=== PATIENT | female | born 1970 | race African-American/Black ===

== ENCOUNTER 2016-08-05 17:25 | Inpatient (IN) ==
[2016-08-05] MEDS ORDERED: chlorproMAZINE INJ 25 MG in SODIUM CHLORIDE 0.9% 100 ML IV PRN (19:57)
[2016-08-05] MEDS ORDERED: BENZTROPINE 2 MG/2 ML AMP IV PRN (19:57)
[2016-08-05] MEDS ORDERED: MAGNESIUM HYDROXIDE SUSP 30 ML UDCUP PO PRN (19:57)
[2016-08-05] MEDS ORDERED: chlorproMAZINE INJ 50 MG in SODIUM CHLORIDE 0.9% 100 ML IV PRN (19:57)
[2016-08-05] MEDS ORDERED: diphenhydrAMINE CAP 25 MG CAPSULE PO PRN (19:57)
[2016-08-05] MEDS ORDERED: TEMAZEPAM 7.5 MG CAPSULE PO PRN (19:57)
[2016-08-05] MEDS ORDERED: PROMETHAZINE INJ 25 MG in SODIUM CHLORIDE 0.9% 50 ML IV PRN (19:57)
[2016-08-05] MEDS ORDERED: ACETAMINOPHEN 325 MG TABLET PO PRN (19:57)
[2016-08-05] MEDS ORDERED: ALUMINUM/MAGNES/SIMETH MAX STR 30 ML UDCUP PO PRN (19:57)
[2016-08-05] MEDS ORDERED: LACTULOSE 20 GM/30 ML UDCUP PO PRN (19:57)
[2016-08-05] MEDS ORDERED: ALPRAZolam 0.25 MG TABLET PO PRN (19:57)
[2016-08-05] MEDS ORDERED: traMADol 50 MG TABLET PO PRN (19:57)
[2016-08-05] MEDS ORDERED: guaiFENesin 200 MG/10 ML UDCUP PO PRN (19:57)
[2016-08-05] MEDS ORDERED: LOPERAMIDE 2 MG CAPSULE PO PRN ×2 (19:57)
[2016-08-05] MEDS ORDERED: MYLANTA/LIDO VISC 2:1 300 ML BOTTLE SWISH/SWAL PRN (19:57)
[2016-08-05] MEDS ORDERED: ONDANSETRON 4 MG/2 ML VIAL IV PRN (19:57)
[2016-08-05] MEDS ORDERED: chlorproMAZINE 25 MG TABLET PO PRN (19:57)
[2016-08-05] MEDS ORDERED: MYLANTA/LIDO VISC 2:1 300 ML BOTTLE SWISH/SPIT PRN (19:57)
[2016-08-05] MEDS ORDERED: SODIUM CHLORIDE 0.9% 250 ML IV PRN (20:01)
[2016-08-05 22:03] LABS: Basophils # 0.1 10*3/uL (0.0-0.2); Eosinophils # 0.1 10*3/uL (0.0-0.87); Eosinophils % 0.1 % (0.00-10.9); Hematocrit 21.4 VOL% (35.7-47.0); Hemoglobin 7.1 GM/DL (12.0-16.0); Immature Granulocytes % 32.5 %; Immature Granulocytes Absolute 44.28 #; Lymphocytes # 3.7 10*3/uL (1.4-4.0); Lymphocytes % 2.7 % (21.3-54.2); Mean Corpuscular HGB Conc 33.2 GM/DL (32-36); Mean Corpuscular Hemoglobin 26 PG (27-34); Mean Corpuscular Volume 78.4 FL (87-102); Mean Platelet Volume 9.4 FL (9.6-12.0); Monocytes # 4.3 10*3/uL (0.11-0.8); Monocytes % 3.1 % (1.7-12.7); NRBC # 0.25 10*3/uL; Neutrophils # 83.9 10*3/uL (1.4-7.4); Neutrophils % 61.6 % (38.7-73.9); Platelet Count 455 T/CUMM (130-400); Red Blood Count 2.73 MC/CUMM (3.8-5.5); Red Cell Distribution Width 17.7 % (9.3-17.3)
[2016-08-05 22:05] LABS: White Blood Count 136.3 T/CUMM (4-12)
[2016-08-05 22:31] LABS: Albumin 2.2 G/DL (3.4-5.0); Bilirubin,Total 1.1 MG/DL (0.2-1.0); Magnesium 1.3 MG/DL (1.8-2.4); Osmolality,Calculated 279.4 MOS/KG (273-304); Potassium 3.6 MMOL/L (3.5-5.1); Total Protein 6.4 G/DL (6.4-8.3); Uric Acid 9.6 MG/DL (2.6-6.0)
[2016-08-05 23:05] LABS: Band Neutrophils 5 % (0-10); Lymphocytes 8 % (20-55); Metamyelocytes 1 %; Myelocytes 8 %; Nucleated Red Blood Cells 1 (0-5); Segmented Neutrophils 76 % (50-85)
[2016-08-05 23:06] LABS: Hypochromasia 1+; Microcytosis 1+; Platelet Estimate Normal; Polychromasia Few; Total Cells Counted 100
[2016-08-06] MEDS: SODIUM CHLORIDE 0.45% 1,000 ML IV SCH ×2 (03:03→15:38)
[2016-08-06] MEDS: PIPERACILLIN/TAZOBACTAM 3,375 MG in SODIUM CHLORIDE 0.9% 100 ML IV SCH ×3 (03:20→22:58)
[2016-08-06 05:51] LABS: Eosinophils # 0.1 10*3/uL (0.0-0.87); Eosinophils % 0.1 % (0.00-10.9); Hematocrit 24.6 VOL% (35.7-47.0); Hemoglobin 8.1 GM/DL (12.0-16.0); Immature Granulocytes % 31.7 %; Immature Granulocytes Absolute 39.24 #; Lymphocytes # 3.5 10*3/uL (1.4-4.0); Lymphocytes % 2.9 % (21.3-54.2); Mean Corpuscular HGB Conc 32.9 GM/DL (32-36); Mean Corpuscular Hemoglobin 26 PG (27-34); Mean Corpuscular Volume 79.9 FL (87-102); Mean Platelet Volume 9.5 FL (9.6-12.0); Monocytes # 3.4 10*3/uL (0.11-0.8); Monocytes % 2.7 % (1.7-12.7); NRBC # 0.24 10*3/uL; Neutrophils # 77.3 10*3/uL (1.4-7.4); Neutrophils % 62.6 % (38.7-73.9); Platelet Count 390 T/CUMM (130-400); Red Blood Count 3.08 MC/CUMM (3.8-5.5)
[2016-08-06 06:12] LABS: White Blood Count 123.6 T/CUMM (4-12)
[2016-08-06] MEDS ORDERED: SODIUM CHLORIDE 0.9% 250 ML IV PRN (06:32)
[2016-08-06 06:34] LABS: Band Neutrophils 10 % (0-10); Lymphocytes 3 % (20-55); Metamyelocytes 2 %; Myelocytes 5 %; Nucleated Red Blood Cells 1 (0-5); Segmented Neutrophils 78 % (50-85); Total Cells Counted 100
[2016-08-06 06:35] LABS: Hypochromasia 1+; Microcytosis 1+; Platelet Estimate Adequate
[2016-08-06] MEDS ORDERED: oxyCODONE/ACETAMINOPHEN 5-325 MG TABLET PO PRN (06:35)
[2016-08-06] MEDS ORDERED: CYCLOBENZAPRINE 10 MG TABLET PO PRN (06:35)
[2016-08-06] MEDS ORDERED: CETIRIZINE 10 MG TABLET PO PRN (06:35)
[2016-08-06] MEDS ORDERED: MAGNESIUM SULF RIDER 4 GM in PREMIX 1 EACH IV ONE (06:36)
--- NOTE | 2016-08-06 06:47 | Oncology History&Physical ---
Assessment and Plan (1) Metastatic carcinoma Status: Acute Assessment and plan: I have asked GI to evaluate given anemia and abnormal CT of the sigmoid colon. A CEA is pending for today. I will also notify radiation of her inpatient status and continue treatment as tolerated to what appears to be a left femoral target. She may require MRI to further delineate the cause of her back pain. I will also consider an axillary biopsy while hospitalized. She will be placed on DVT prophylaxis. She has dehydration at this time and is on IV fluids and withholding of metformin. I will also follow her liver panel which is abnormal. I have placed her on a renal dose amount of allopurinol for her significant uric acid elevation. She is a very sick patient and her prognosis is guarded at this time. Current Visit: Yes History of Present Illness Chief complaint: Back pain History of present illness: Ms. Schwab is a 46 year old female Recently diagnosed with widely metastatic carcinoma. Liver biopsy is consistent with triple negative breast carcinoma. She recently underwent a breast ultrasound and biopsy which I believe were nondiagnostic. She does have a right axillary lymph node previously discussed with Dr. Alonso and we had plans to biopsy this area as well. The patient has received 1 cycle of standard dose paclitaxel. My initial request was for doublet carboplatinum and Taxol though this was denied by her insurance. She has had some degree of inflammation and leukocytosis with a 30-40,000 white blood cell count. Yesterday she was seen at [facility] with back pain and was noted to have a white blood count of over 100,000. Peripheral smear is pending this morning though her manual differential seems to indicate more of a leukemoid type reaction. I have asked GI to see her due to the fact she has a microcytic anemia and has an area of narrowing within the sigmoid colon. She reports a colonoscopy with Dr. Hutchins in [place] approximately 6-8 years ago. There are multiple other areas of tumor including the adrenal glands lower thorax and at least 2 large masses within the liver Home Medications Medication Instructions Recorded Confirmed Type Ascorbic Acid Tab [Vitamin C Tab] 500 mg PO DAILY 07/15/16 08/05/16 History Citalopram [CeleXA] 20 mg PO DAILY 07/15/16 08/05/16 History Metoprolol Tartrate 50 mg PO BID 07/15/16 08/05/16 History metFORMIN [Glucophage] 1,000 mg PO BID W/MEALS 07/15/16 08/05/16 History Cyclobenzaprine [Flexeril] 5 mg PO BEDTIME PRN 07/17/16 08/05/16 History Albuterol Inhaler [Proventil 2 puff INH Q4H PRN 07/26/16 08/05/16 History Inhaler] Cetirizine Tab [ZyrTEC Tab] 10 mg PO DAILY PRN 07/26/16 08/05/16 History Ferrous Sulfate 325 mg PO BID 07/26/16 08/05/16 History Oxycodone HCl/Acetaminophen 1 each PO Q6HR PRN #30 07/31/16 08/05/16 Rx [Percocet 10-325 mg Tablet] Allergies Allergy/AdvReac Type Severity Reaction Status Date / Time lisinopril Allergy Severe FACIAL Verified 07/15/16 17:13 SWELLING Medical,Surgical,& Family Hx - Medical History Cardio: History of: Hypertension Neurology: No history of: Seizures Endocrine: History of: Diabetes Mellitus (NIDDM), Dyslipidemia Musculoskeletal: History of: Back/Neck Problems (low back pain started today) Other: No history of: Anesthesia Reactions - Surgical History Reproductive Surgeries: Surgical HX of;: Hysterectomy (Complete) - Family History Family History: Reports;: Family Diabetes, Family Hypertension - Social History Smoking Status: Current every day smoker Frequency of Alcohol Use: None Type of Drug Use: None - Constitutional Constitutional: Present: fatigue, malaise, night sweats. Absent: increased appetite - EENT Nose, mouth and throat: Absent: dizziness, dysphagia, epistaxis - Cardiovascular Cardiovascular ROS IM: Absent: chest pain - Respiratory Respiratory: Absent: cough, hemoptysis - Gastrointestinal Gastrointestinal: Present: constipation. Absent: diarrhea - Musculoskeletal Musculoskeletal ROS: Present: back pain, muscle weakness. Absent: joint swelling - Psychiatric Psychiatric General: Absent: panic attacks, suicidal ideation Exam - Constitutional Vitals: Period Temp Pulse Resp BP Sys/Kelly Pulse Ox Last 24 Hr 96.5 F-98.6 F 100-108 18-20 91-109/54-65 92-100 General appearance: mild distress, over weight - Head Head Exam: Present: normocephalic - Eye Eye Exam: Present: EOMI. Absent: conjunctival injection, periorbital swelling, scleral icterus Pupils: Present: PERRL - ENT ENT exam: Present: normal external ear exam - Neck Neck exam: Present: normal inspection. Absent: lymphadenopathy - Respiratory Respiratory exam: Present: CTAB. Absent: accessory muscle use, chest wall tenderness, wheezes - Cardiovascular Cardiovascular exam: Present: tachycardia. Absent: systolic murmur - GI/Abdominal GI/Abdominal exam: Absent: ascites, distended, firm, guarding - Neurological Exam Neurological exam: Present: alert, oriented X3 - Psychiatric Psychiatric exam: Present: normal affect, normal mood Results - Labs CBC & BMP: 08/06/16 04:50 08/05/16 20:56
[2016-08-06 07:57] LABS: Albumin 2.1 G/DL (3.4-5.0); Bilirubin,Total 0.5 MG/DL (0.2-1.0); Calcium 8.1 MG/DL (8.5-10.1); Magnesium 1.4 MG/DL (1.8-2.4); Osmolality,Calculated 280.3 MOS/KG (273-304); Potassium 3.6 MMOL/L (3.5-5.1); Total Protein 6.2 G/DL (6.4-8.3)
[2016-08-06 08:20] LABS: Immunoglobulin A 173 MG/DL (70-400); Immunoglobulin G 1280 MG/DL (700-1600); Immunoglobulin M 85 MG/DL (40-230)
[2016-08-06] MEDS: ALLOPURINOL 100 MG TABLET PO SCH (08:51)
[2016-08-06] MEDS: FERROUS SULFATE 325 MG TABLET PO SCH ×2 (08:51→22:52)
[2016-08-06] MEDS: ASCORBIC ACID 500 MG TABLET PO SCH (08:51)
[2016-08-06] MEDS: ENOXAPARIN 40 MG/0.4 ML SYRINGE SUBCUT SCH (08:53)
[2016-08-06] MEDS: METOPROLOL TARTRATE 50 MG TABLET PO SCH ×2 (08:53→22:51)
[2016-08-06 10:43] LABS: Albumin (SPE) 2.5 G/DL (3.2-5.3); Albumin (SPE) Rel % 40.1 %; Alpha 1 (SPE) 0.5 G/DL (0.1-0.4); Alpha 1 (SPE) Rel % 8.1 %; Alpha 2 (SPE) Rel % 16.5 %; Total Protein (Chem) 6.2 G/DL (6.4-8.2)
[2016-08-06 10:44] LABS: Beta (SPE) Rel % 15.8 %; Gamma (SPE) 1.2 G/DL (0.7-1.7); Gamma (SPE) Rel % 19.5 %
[2016-08-06 11:26] LABS: Apearance,Urine CLOUDY (Clear); Bilirubin,Urine Negative (Negative); Blood, Urine Negative (Negative); Glucose,Urine (UA) Negative (Negative); Ketones,Urine Negative (Negative); Mucus,Urine Occasional /LPF (Occasional); Nitrite,Urine Negative (Negative); Protein,Urine 100 MG/DL; RBC,Urine 37 /HPF (0-4); Squamous Epithelial Cell,Urine Few /HPF (0-10); Uric Acid Crystals,Urine Moderate /HPF (<1); Urine Specific Gravity 1.018 (1.001-1.035); WBC,Urine 98 /HPF (0-6)
[2016-08-06 11:27] LABS: Urine Color Dark yellow (Yellow)
[2016-08-06] MEDS ORDERED: BISACODYL 5 MG TABLET PO ONE (12:00)
--- NOTE | 2016-08-06 12:54 | Gastrointestinal Consult Note ---
Assessment and Plan (1) Metastatic carcinoma Status: Acute Assessment and plan: 08/06-Recent diagnosis of metastatic disease with reported findings on CT scan of narrowing at sigmoid colon. Unable to find or view this report at present time. Anemia, abdominal pain. Plan to proceed with colonoscopy tomorrow as pt tolerates the prep. Plan and addendum to follow by Dr Watts. Current Visit: Yes History of Present Illness Chief complaint: Abnormal CT, anemia, metastatic cancer History of present illness: Ms. Schwab is a 46 year old female who presented to the hospital with worsening back pain. Pt has a history of recently diagnosed metastatic carcinoma. Pt states that she was initially diagnosed last month with breast cancer and began chemotherapy. She underwent a liver biopsy as well and was found to have triple negative breast carcinoma. She went to [facility] on yesterday due to worsening back pain and was found to have an elevated WBC count and was sent to our facility for further evaluation. Pt had a contrasted CT of the abdomen and pelvis on 07/12 with findings of widespread neoplastic disease with mass in right lunb, liver lesions, adrenal masses bilaterally and left renal masses, mediastinal nodes with consideration for mesothelioma. I do not see mention on this report of a narrowing of the sigmoid colon or an updated CT in the facility database at present time, however noted in Dr Woodruff admission note. Pt had colonoscopy that she reported was several years ago by Dr Hutchins in [place] for changes in her stool. She presents as well with microcytic anemia with hemoglobin of 7.1 and MCV 78. She has been transfused 2 units of PRBC with hgb now 8.1. WBC 123, CEA 17.7 Home Medications Medication Instructions Recorded Confirmed Type Ascorbic Acid Tab [Vitamin C Tab] 500 mg PO DAILY 07/15/16 08/05/16 History Citalopram [CeleXA] 20 mg PO DAILY 07/15/16 08/05/16 History Metoprolol Tartrate 50 mg PO BID 07/15/16 08/05/16 History metFORMIN [Glucophage] 1,000 mg PO BID W/MEALS 07/15/16 08/05/16 History Cyclobenzaprine [Flexeril] 5 mg PO BEDTIME PRN 07/17/16 08/05/16 History Albuterol Inhaler [Proventil 2 puff INH Q4H PRN 07/26/16 08/05/16 History Inhaler] Cetirizine Tab [ZyrTEC Tab] 10 mg PO DAILY PRN 07/26/16 08/05/16 History Ferrous Sulfate 325 mg PO BID 07/26/16 08/05/16 History Oxycodone HCl/Acetaminophen 1 each PO Q6HR PRN #30 07/31/16 08/05/16 Rx [Percocet 10-325 mg Tablet] Allergies Allergy/AdvReac Type Severity Reaction Status Date / Time lisinopril Allergy Severe FACIAL Verified 07/15/16 17:13 SWELLING Medical,Surgical,& Family Hx - Medical History Cardio: History of: Hypertension Neurology: No history of: Seizures Endocrine: History of: Diabetes Mellitus (NIDDM), Dyslipidemia Musculoskeletal: History of: Back/Neck Problems (low back pain started today) Other: No history of: Anesthesia Reactions - Surgical History Reproductive Surgeries: Surgical HX of;: Hysterectomy (Complete) - Family History Family History: Reports;: Family Diabetes, Family Hypertension - Social History Smoking Status: Current every day smoker Frequency of Alcohol Use: None Type of Drug Use: None 12 point system: reviewed and no additional remarkable complaints except as stated - Constitutional Constitutional: Present: as per HPI, fatigue, weight loss - EENT Eyes: Present: as per HPI Ears: Present: as per HPI Nose, mouth and throat: Present: as per HPI - Cardiovascular Cardiovascular: Present: as per HPI - Respiratory Respiratory: Present: as per HPI - Gastrointestinal Gastrointestinal: Present: as per HPI, abdominal pain - Genitourinary Genitourinary: Present: as per HPI - Musculoskeletal Musculoskeletal: Present: as per HPI - Neurological Neurological: Present: as per HPI - Psychiatric Psychiatric: Present: as per HPI - Endocrine Endocrine: Present: as per HPI - Hematologic/Lymphatic Hematologic/Lymphatic: Present: as per HPI Exam - Constitutional Vitals: Period Temp Pulse Resp BP Sys/Kelly Pulse Ox Last 24 Hr 96.5 F-98.6 F 100-108 18-20 91-109/54-65 92-100 General appearance: normal weight, no acute distress - Head Head exam: Present: normal inspection, normocephalic - Eye Eye exam: Present: other (lids and conjunctiva unremarakble). Absent: scleral icterus - ENT ENT exam: Present: normal exam, normal oropharynx - Neck Neck exam: Present: normal inspection - Respiratory Respiratory exam: Present: clear to auscultation bilaterally. Absent: rales, rhonchi, wheezes - Cardiovascular Cardiovascular exam: Present: regular rate and rhythm. Absent: diastolic murmur , JVD, systolic murmur - GI/Abdominal GI/Abdominal exam: Present: normal bowel sounds, distended, tenderness, soft. Absent: ascites, mass, organomegaly - Extremities Exam Extremities exam: Present: normal inspection, full ROM - Back Exam Back exam: Present: normal inspection - Neurological Exam Neurological exam: Present: alert, oriented X3 - Psychiatric Psychiatric exam: Present: normal affect, normal mood - Skin Skin exam: Present: normal color, warm, dry Results - Labs CBC & BMP: 08/06/16 04:50 08/06/16 04:00 Lab Results: I have reviewed the past 24 hour labs
--- NOTE | 2016-08-06 17:55 | Event Note ---
Patient was seen and examined at 11:15 AM today in the presence of my nurse practitioner Poppy HI. Unfortunately the computer will not allow me to access her note for cosign at this time. Unfortunate situation with metastatic malignancy question of sigmoid involvement raising the possibility of secondary primary. We'll proceed with colonoscopy in a.m. if she is unable tolerate a prep will plan EGD. Risks, benefits and alternatives were reviewed with the patient. Abdomen is soft nondistended nontender Agree with additional history physical findings per Poppy HI note of today that the computer will not let me cosign at this time. I will plan to cosign it at a later time.
[2016-08-06] MEDS ORDERED: POLYETHYLENE GLYCOL POWDER 255 GM BOTTLE PO ONE (18:00)
[2016-08-06] MEDS ORDERED: MAGNESIUM CITRATE 300 ML BOTTLE PO ONE (21:00)
[2016-08-07] MEDS: ENOXAPARIN 40 MG/0.4 ML SYRINGE SUBCUT SCH (07:26)
[2016-08-07] MEDS: PIPERACILLIN/TAZOBACTAM 3,375 MG in SODIUM CHLORIDE 0.9% 100 ML IV SCH ×2 (07:31→18:42)
--- NOTE | 2016-08-07 07:31 | Oncology Progress Note ---
Assessment and Plan (1) Metastatic carcinoma Status: Acute Assessment and plan: I have asked GI to evaluate given anemia and abnormal CT of the sigmoid colon. A CEA is pending for today. I will also notify radiation of her inpatient status and continue treatment as tolerated to what appears to be a left femoral target. She may require MRI to further delineate the cause of her back pain. I will also consider an axillary biopsy while hospitalized. She will be placed on DVT prophylaxis. She has dehydration at this time and is on IV fluids and withholding of metformin. I will also follow her liver panel which is abnormal. I have placed her on a renal dose amount of allopurinol for her significant uric acid elevation. She is a very sick patient and her prognosis is guarded at this time. Current Visit: Yes Oncology Subjective PN Interval history: Patient is comfortable at this time. Vital signs are stable. Flow cytometry is ordered for extreme leukocytosis. EGD for today as she was unable to tolerate colon prep yesterday. Also planning right axillary node biopsy. This area was examined by me today and is approximately 3 cm in size. The left eye was also examined with what appears to be a palpable mass. This area is being treated with radiotherapy. I will also check leg Dopplers today. Her pain appears under fair control at this time. I reviewed past CT scans and did not see any obvious bony metastatic disease from last month. Exam - Constitutional Vitals: Period Temp Pulse Resp BP Sys/Kelly Pulse Ox Last 24 Hr 96.2 F-98.1 F 88-113 18-20 81-145/56-79 94-97 Results - Labs CBC & BMP: 08/06/16 04:50 08/06/16 04:00
[2016-08-07 07:54] LABS: Basophils # 0.1 10*3/uL (0.0-0.2); Eosinophils # 0.1 10*3/uL (0.0-0.87); Eosinophils % 0.1 % (0.00-10.9); Immature Granulocytes % 27.4 %; Lymphocytes # 2.4 10*3/uL (1.4-4.0); Lymphocytes % 2.1 % (21.3-54.2); Mean Corpuscular HGB Conc 33.3 GM/DL (32-36); Mean Corpuscular Hemoglobin 27 PG (27-34); Mean Corpuscular Volume 80.9 FL (87-102); Mean Platelet Volume 9.3 FL (9.6-12.0); Monocytes # 3.7 10*3/uL (0.11-0.8); Monocytes % 3.3 % (1.7-12.7); NRBC # 0.16 10*3/uL; Neutrophils # 75.2 10*3/uL (1.4-7.4); Neutrophils % 67.1 % (38.7-73.9); Platelet Count 319 T/CUMM (130-400); Red Blood Count 3.71 MC/CUMM (3.8-5.5); Red Cell Distribution Width 18.7 % (9.3-17.3)
[2016-08-07 08:04] LABS: INR 1.2; PT Patient Result 12.3 SECS; Partial Thromboplastin Time 38.4 SECS (0-40)
[2016-08-07 08:06] LABS: White Blood Count 112.1 T/CUMM (4-12)
[2016-08-07 08:17] LABS: Band Neutrophils 9 % (0-10); Hypochromasia 1+; Lymphocytes 4 % (20-55); Metamyelocytes 1 %; Microcytosis 1+; Myelocytes 3 %; Ovalocytes Slight; Platelet Estimate Adequate; Segmented Neutrophils 78 % (50-85); Total Cells Counted 100
[2016-08-07 08:29] LABS: Bilirubin,Total 0.7 MG/DL (0.2-1.0); Calcium 8.2 MG/DL (8.5-10.1); Osmolality,Calculated 283.3 MOS/KG (273-304); Potassium 3.3 MMOL/L (3.5-5.1); Total Protein 5.9 G/DL (6.4-8.3)
--- NOTE | 2016-08-07 09:55 | Ultrasound Report ---
US renal Bilateral Indication: Elevated creatinine. RENAL ULTRASOUND: Grayscale and color Doppler imaging the kidneys performed. Right kidney measures 123 x 63 x 61 mm. Left kidney measures 122 x 72 x 73 mm. No hydronephrosis, cyst or calcification identified on either side. Color Doppler flow at both renal pretty documented. At the lower pole of left kidney, there is a vague area of architectural distortion that is very difficult to see, but measures approximately 30 x 35 mm, directly correlating to the abnormal mass present on the CT from 07/12/2016. Masses involve both adrenal glands, approximately 113 x 72 mm on the right and 64 x 45 mm on the left. Impression: Left renal mass identified. No obstructive pathology of either kidney to suggest anatomic cause for uremia. Bilateral adrenal masses. PROCEDURE INTERPRETED AT [facility] DEPARTMENT OF RADIOLOGY Final Report Signed by: Homero Vang M.D.
--- NOTE | 2016-08-07 09:55 | Ultrasound Report ---
Bilateral lower extremity venous Doppler. Indication: Lower extremity edema. Bilateral lower extremity venous Doppler with roman scale, Spectral Doppler and color-flow analysis performed and interpreted. Indication: Scanning over both common femoral veins, superficial femoral veins, greater saphenous veins and popliteal veins demonstrates normal compressibility, color flow, and augmentation. Impression: No evidence of DVT seen in either lower extremity. PROCEDURE INTERPRETED AT [facility] DEPARTMENT OF RADIOLOGY Final Report Signed by: Dr. Liz Craig
--- NOTE | 2016-08-07 10:16 | Radiation Oncology Letter ---
Radiation Oncology - Letter 46 yo AAF with metastatic breast cancer who is under treatment for a soft tissue metastasis to the L thigh adjacent to the mid shaft of the femur. She has received 2 of 15 planned treatments. She is now having some new back pain. She was unable to tolerate previously scheduled MRIs. On CT she was seen to have large adrenal metastasis. 79x73 mm on the R and 24x38 mm on the left. These may be part of the explanation for her back pain, however it may be useful to try and get an MRI with some degree of sedation. Thanks Parish Penaloza
[2016-08-07] MEDS ORDERED: PROPOFOL 200 MG/20 ML VIAL IV ONE (11:30)
[2016-08-07] MEDS ORDERED: LIDOCAINE 2% 5 ML VIAL ONE (11:30)
--- NOTE | 2016-08-07 11:32 | History and Physical Update ---
History and Physical Update - Physical Exam Mental Status: alert and oriented Heart: regular rate and rhythm Lung: clear to auscultation Abdomen: within normal limits Vitals: within normal limits
--- NOTE | 2016-08-07 11:36 | Ultrasound Report ---
RIGHT BREAST ULTRASOUND GUIDED CORE NEEDLE BIOPSY Date of study: 08/05/2016 7:07 PM History: 46 year-old female returns for ultrasound-guided biopsy of the right axillary lymph node at the 10:00 position located 20 cm from the nipple. Procedure: The ultrasound guided vacuum assisted core needle biopsy procedure was discussed with the patient, and written informed consent was obtained. The targeted axillary lymph node was redemonstrated with ultrasound, and the skin of the breast and the ultrasound probe were prepared in the usual sterile fashion. 1% lidocaine was used for local anesthesia, and 1% lidocaine with epinephrine was used for deeper local anesthesia. A small skin zari was made and a 14-gauge Achieve core biopsy needle was used to obtain a single core of tissue from the cortex of the targeted node. The needle was removed from the breast and hemostasis was achieved. The patient did well and no immediate complications occurred. A bandage and ice pack were applied to the biopsy site. Postbiopsy breast care instructions were discussed with the patient before she was sent back to her room (inpatient). IMPRESSION: Status post ultrasound-guided core needle biopsy of the right axillary lymph node. Final report is pending pathology. Ultrasound images were captured and stored. PROCEDURE INTERPRETED AT [facility] DEPARTMENT OF RADIOLOGY Final Report Signed by: Dr. Vaishali Alonso
--- NOTE | 2016-08-07 11:45 | Operative Note ---
Date of procedure: 08/07/16 Pre-op diagnosis: iron deficiency anemia Procedure: EGD with biopsy 46-year-old female with widely metastatic cancer now with progressive anemia and abnormal CT scan for EGD to further evaluate. Plan colonoscopy were rescheduled due to inability to tolerate prep. Informed symptoms obtained the patient She was sedated with Mac anesthesia per anesthesia protocol. Placed in left lateral decubitus position and the Olympus flexible video upper endoscope was inserted into the oral cavity under direct vision the esophagus was intubated. Findings: Esophagus-normal proximal mid esophageal mucosa distal esophagus with small to moderate hiatal hernia with no significant esophagitis or stricture seen. Stomach-normal insufflation normal mucosa to direct flecks views of the body fundus and cardia of the stomach. In the antrum there is mild diffuse gastritis biopsies were taken. No ulcers or active bleeding were noted. Pylorus-normal Duodenum-normal the bulb the duodenum to the third portion of the duodenum. The procedure was terminated patient our procedure well she's discharge. Good condition. Postop diagnosis: #1 [id number] biopsy positive for H. pylori will treat. Continue PPI treatment #2 gastroesophageal reflux disease-continue PPI treatment #3 retry for colonoscopy in a.m. to evaluate her abnormal CT and anemia. Anesthesia: MAC Surgeon / Physician: Luciano Watts Specimens: other (antral gastritis) Condition: stable Disposition: post procedure unit Results - Labs CBC & BMP: 08/07/16 07:27 08/07/16 07:27 Discharge Plan - Discharge Medications No Action Metoprolol Tartrate 50 mg PO BID Albuterol Inhaler [Proventil Inhaler] 2 puff INH Q4H PRN PRN Reason: Shortness Of Breath/Wheezing metFORMIN [Glucophage] 1,000 mg PO BID W/MEALS Ascorbic Acid Tab [Vitamin C Tab] 500 mg PO DAILY Citalopram [CeleXA] 20 mg PO DAILY Cyclobenzaprine [Flexeril] 5 mg PO BEDTIME PRN PRN Reason: Pain Cetirizine Tab [ZyrTEC Tab] 10 mg PO DAILY PRN PRN Reason: Allergy Symptoms Ferrous Sulfate 325 mg PO BID Oxycodone HCl/Acetaminophen [Percocet 10-325 mg Tablet] 1 each PO Q6HR PRN # 30 PRN Reason: Pain - Follow Up or Referral - Forms/Instructions
--- NOTE | 2016-08-07 11:57 | Anesthesia ---
Anesthesia Post OP - Post Ansesthetic Evaluation Patient seen in post op: Yes Resp: within normal limits CV: within normal limits Mental: within normal limits Temp: within normal limits [id number]: within normal limits Nausea and Vomiting: within normal limits Pain: within normal limits
[2016-08-07] MEDS: MORPHINE 2 MG/1 ML SYRINGE IV PRN ×2 (12:52→17:02)
[2016-08-07] MEDS ORDERED: POLYETHYLENE GLYCOL POWDER 255 GM BOTTLE PO ONE (14:00)
[2016-08-07] MEDS: FERROUS SULFATE 325 MG TABLET PO SCH ×2 (14:49→21:31)
[2016-08-07] MEDS: FLUCONAZOLE 200 MG TABLET PO SCH (14:49)
[2016-08-07] MEDS: ALLOPURINOL 100 MG TABLET PO SCH (14:49)
[2016-08-07] MEDS: METOPROLOL TARTRATE 50 MG TABLET PO SCH ×2 (14:49→21:31)
[2016-08-07] MEDS: ASCORBIC ACID 500 MG TABLET PO SCH (14:50)
[2016-08-07] MEDS: SODIUM CHLORIDE 0.45% 1,000 ML IV SCH (14:56)
[2016-08-07] MEDS: POTASSIUM CHLORIDE RIDER 20 MEQ in PREMIX 1 EACH IV SCH ×3 (14:58→17:22)
[2016-08-07] MEDS ORDERED: MAGNESIUM CITRATE 300 ML BOTTLE PO SCH (21:00)
[2016-08-07] MEDS ORDERED: ENOXAPARIN 40 MG/0.4 ML SYRINGE SUBCUT SCH (21:00)
[2016-08-08 05:48] LABS: Albumin 2.2 G/DL (3.4-5.0); Bilirubin,Total 0.7 MG/DL (0.2-1.0); Calcium 8.5 MG/DL (8.5-10.1); Osmolality,Calculated 282.3 MOS/KG (273-304); Potassium 3.7 MMOL/L (3.5-5.1); Total Protein 6.7 G/DL (6.4-8.3)
[2016-08-08] MEDS: PIPERACILLIN/TAZOBACTAM 3,375 MG in SODIUM CHLORIDE 0.9% 100 ML IV SCH ×3 (05:51→20:49)
[2016-08-08] MEDS: MORPHINE 2 MG/1 ML SYRINGE IV PRN ×2 (08:32→21:33)
[2016-08-08 08:38] LABS: Eosinophils # 0.1 10*3/uL (0.0-0.87); Eosinophils % 0.1 % (0.00-10.9); Hematocrit 29.4 VOL% (35.7-47.0); Hemoglobin 9.6 GM/DL (12.0-16.0); Immature Granulocytes % 21.7 %; Immature Granulocytes Absolute 21.06 #; Lymphocytes # 2.5 10*3/uL (1.4-4.0); Lymphocytes % 2.6 % (21.3-54.2); Mean Corpuscular HGB Conc 32.7 GM/DL (32-36); Mean Corpuscular Hemoglobin 27 PG (27-34); Mean Corpuscular Volume 83.3 FL (87-102); Mean Platelet Volume 9.2 FL (9.6-12.0); Monocytes # 3.7 10*3/uL (0.11-0.8); Monocytes % 3.8 % (1.7-12.7); NRBC # 0.08 10*3/uL; Neutrophils # 69.9 10*3/uL (1.4-7.4); Neutrophils % 71.8 % (38.7-73.9); Platelet Count 270 T/CUMM (130-400); Red Blood Count 3.53 MC/CUMM (3.8-5.5); Red Cell Distribution Width 19.3 % (9.3-17.3)
[2016-08-08 08:42] LABS: White Blood Count 97.2 T/CUMM (4-12)
--- NOTE | 2016-08-08 08:51 | Oncology Progress Note ---
Assessment and Plan (1) Metastatic carcinoma Status: Acute Assessment and plan: I have asked GI to evaluate given anemia and abnormal CT of the sigmoid colon. A CEA is pending for today. I will also notify radiation of her inpatient status and continue treatment as tolerated to what appears to be a left femoral target. She may require MRI to further delineate the cause of her back pain. I will also consider an axillary biopsy while hospitalized. She will be placed on DVT prophylaxis. She has dehydration at this time and is on IV fluids and withholding of metformin. I will also follow her liver panel which is abnormal. I have placed her on a renal dose amount of allopurinol for her significant uric acid elevation. She is a very sick patient and her prognosis is guarded at this time. Current Visit: Yes Oncology Subjective PN Interval history: Patient resting this a.m. Awaiting flow cytometry though I feel her leukocytosis is most likely leukemoid reaction. Renal ultrasound is reviewed with renal mass but no evidence of obstruction. 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 We are going to attempt lower endoscopy today even if perhaps only a sigmoidoscopy. Right axillary biopsy performed yesterday. No evidence of DVT on lower extremity Dopplers She has some abdominal distention and tenderness in the midline with an incisional hernia. Left thigh palpable mass examined and inspected. Breathing comfortable and normal mental status at this time Continuing with radiotherapy to left thigh. She is reporting less pain and discomfort and at this time I am not going to pursue MRI. Exam - Constitutional Vitals: Period Temp Pulse Resp BP Sys/Kelly Pulse Ox Last 24 Hr 96.9 F-99 F 89-110 15-22 93-117/58-78 92-99 Results - Labs CBC & BMP: 08/08/16 07:59 08/08/16 04:00
[2016-08-08 09:04] LABS: Band Neutrophils 9 % (0-10); Burr Cells Slight; Hypochromasia Slight; Lymphocytes 3 % (20-55); Metamyelocytes 3 %; Myelocytes 4 %; Nucleated Red Blood Cells 1 (0-5); Platelet Estimate Adequate; Segmented Neutrophils 78 % (50-85); Total Cells Counted 100
[2016-08-08] MEDS ORDERED: SODIUM PHOSPHATE ENEMA 133 ML BOTTLE RECTAL ONE (09:04)
[2016-08-08 09:05] LABS: Microcytosis 1+
[2016-08-08] MEDS ORDERED: SODIUM PHOSPHATE ENEMA 133 ML BOTTLE RECTAL PRN (09:06)
--- NOTE | 2016-08-08 11:51 | Pathology Report from [facility] ---
ACCESSION # : [id number] PATIENT NAME : Liss Schwab ORDERING DR : PEGGY PATRICK MD CLINICAL HX: Iron def. anemia, metastatic CA POST-OP DX: Same SPECIMEN INFO: Gastric BX GROSS DESCRIPTION: The specimen is received in formalin labeled with the patient 's name and consists of an aggregate of pink-pedraza mucosal tissue measuring 0.5 x 0.5 cm. Submitted in one cassette. DIAGNOSIS FOR LISS SCHWAB: GASTRIC BIOPSY: Chronic superficial gastritis; no malignancy seen. H.pylori not seen on special stain. SERVICE DATE: 08/07/2016 REPORT DATE: 08/08/2016 PATHOLOGIST: Ashwin Sosa M.D. [facility]
--- NOTE | 2016-08-08 12:36 | Gastrointestinal Progress Note ---
<Poppy Marquez - Last Filed: 08/08/16 12:34> Assessment and Plan (1) Metastatic carcinoma Status: Acute Assessment and plan: 08/08-Flex sig postponed due to not NPO today. Will reschedule for flex sig tomorrow with enemas x 2 in the morning. Plan and addendum to follow by Dr Watts. 08/06-Recent diagnosis of metastatic disease with reported findings on CT scan of narrowing at sigmoid colon. Unable to find or view this report at present time. Anemia, abdominal pain. Plan to proceed with colonoscopy tomorrow as pt tolerates the prep. Plan and addendum to follow by Dr Watts. Current Visit: Yes Gastroenterology - PN: Subj Interval history: CC: Anemia, abnormal CT Pt is seen, sitting on side of bed eating lunch. States she is feeling some better today. She did not have a good prep for colonoscopy today and attempted to change this to flex sig however pt had ice chips this morning. Discussed with pt that we will continue clear liquids today and reattempt flex sig tomorrow with enemas in the morning. Pt agrees at present. Abdomen is soft, nontender. WBC 97. Hgb 9.6. ROS: Denies SOB or chest pain Exam (Progress Note) - Constitutional Vitals: Period Temp Pulse Resp BP Sys/Kelly Pulse Ox Last 24 Hr 96.9 F-99 F 89-110 18-22 93-117/58-78 92-97 General appearance: normal weight, no acute distress - Head Head exam: Present: normal inspection, normocephalic - Eye Eye exam: Present: other (lids and conjunctiva unremarkable). Absent: scleral icterus - ENT ENT exam: Present: normal exam, normal oropharynx - Neck Neck exam: Present: normal inspection - Respiratory Respiratory exam: Present: clear to auscultation bilaterally. Absent: rales, rhonchi, wheezes - Cardiovascular Cardiovascular exam: Present: regular rate and rhythm. Absent: diastolic murmur , JVD, systolic murmur - GI/Abdominal GI/Abdominal exam: Present: normal bowel sounds, soft. Absent: ascites, distended, mass, organomegaly, tenderness - Extremities Exam Extremities exam: Present: normal inspection, full ROM - Back Exam Back exam: Present: normal inspection - Neurological Exam Neurological exam: Present: alert, oriented X3 - Psychiatric Psychiatric exam: Present: normal affect, normal mood - Skin Skin exam: Present: normal color, warm, dry Results - Labs CBC & BMP: 08/08/16 07:59 08/08/16 04:00 Lab Results: I have reviewed the past 24 hour labs <Luciano Watts - Last Filed: 08/08/16 18:34> Exam (Progress Note) - Constitutional Vitals: Period Temp Pulse Resp BP Sys/Kelly Pulse Ox Last 24 Hr 96.5 F-97.6 F 83-104 16-22 93-111/60-71 94-100 Results - Labs CBC & BMP: 08/08/16 07:59 08/08/16 04:00
[2016-08-08] MEDS: ASCORBIC ACID 500 MG TABLET PO SCH (13:54)
[2016-08-08] MEDS: FERROUS SULFATE 325 MG TABLET PO SCH ×2 (13:54→20:49)
[2016-08-08] MEDS: ALLOPURINOL 100 MG TABLET PO SCH (13:54)
[2016-08-08] MEDS: METOPROLOL TARTRATE 50 MG TABLET PO SCH ×2 (13:54→20:49)
[2016-08-08] MEDS: FLUCONAZOLE 200 MG TABLET PO SCH (13:54)
--- NOTE | 2016-08-08 15:40 | XRay Report ---
History: Metastatic disease. Breast cancer Date: 08/08/2016 Study: Left femur 2 views Comparison exam: Left hip x-ray July 15, 2016 There is some moth eaten lytic bone destruction involving the medial cortex of the proximal to mid left femoral diaphysis, grossly similar to the previous x-ray, compatible with metastatic disease as before. There is some vague soft tissue calcification within the medial aspect of the thigh adjacent to this area. There is no new lesion or worsening process. There is no pathologic fracture. Impression: Eccentric lytic bone destruction of the medial aspect of the proximal to mid left femoral diaphysis compatible with metastatic disease, grossly similar to the comparison study PROCEDURE INTERPRETED AT [facility] DEPARTMENT OF RADIOLOGY Final Report Signed by: Dr. Kait Chadwick
[2016-08-09] MEDS ORDERED: HEPARIN LOCK FLUSH 500 UNIT/5 ML SYRINGE IV ONE ×2 (02:50→19:02)
[2016-08-09] MEDS: PIPERACILLIN/TAZOBACTAM 3,375 MG in SODIUM CHLORIDE 0.9% 100 ML IV SCH ×2 (03:36→13:09)
[2016-08-09 04:57] LABS: Eosinophils # 0.1 10*3/uL (0.0-0.87); Eosinophils % 0.1 % (0.00-10.9); Hematocrit 28.5 VOL% (35.7-47.0); Immature Granulocytes % 19.7 %; Immature Granulocytes Absolute 18.61 #; Lymphocytes # 2.9 10*3/uL (1.4-4.0); Mean Corpuscular HGB Conc 31.6 GM/DL (32-36); Mean Corpuscular Hemoglobin 27 PG (27-34); Mean Corpuscular Volume 85.3 FL (87-102); Mean Platelet Volume 9.8 FL (9.6-12.0); Monocytes # 4.2 10*3/uL (0.11-0.8); Monocytes % 4.5 % (1.7-12.7); NRBC # 0.08 10*3/uL; Neutrophils # 68.7 10*3/uL (1.4-7.4); Neutrophils % 72.7 % (38.7-73.9); Platelet Count 269 T/CUMM (130-400); Red Blood Count 3.34 MC/CUMM (3.8-5.5); Red Cell Distribution Width 20.1 % (9.3-17.3)
[2016-08-09 05:01] LABS: White Blood Count 94.6 T/CUMM (4-12)
[2016-08-09 05:23] LABS: Albumin 1.9 G/DL (3.4-5.0); Bilirubin,Total 1.1 MG/DL (0.2-1.0); Calcium 8.2 MG/DL (8.5-10.1); Osmolality,Calculated 280.3 MOS/KG (273-304); Potassium 3.5 MMOL/L (3.5-5.1); Total Protein 5.8 G/DL (6.4-8.3)
[2016-08-09 05:24] LABS: Band Neutrophils 6 % (0-10); Lymphocytes 3 % (20-55); Metamyelocytes 1 %; Myelocytes 3 %; Segmented Neutrophils 83 % (50-85); Total Cells Counted 100
[2016-08-09 05:25] LABS: Hypochromasia 1+; Microcytosis 1+; Ovalocytes Slight; Platelet Estimate Adequate
[2016-08-09] MEDS: MORPHINE 2 MG/1 ML SYRINGE IV PRN ×2 (06:14→12:56)
--- NOTE | 2016-08-09 09:56 | Oncology Progress Note ---
Assessment and Plan (1) Metastatic carcinoma Status: Acute Assessment and plan: I have asked GI to evaluate given anemia and abnormal CT of the sigmoid colon. A CEA is pending for today. I will also notify radiation of her inpatient status and continue treatment as tolerated to what appears to be a left femoral target. She may require MRI to further delineate the cause of her back pain. I will also consider an axillary biopsy while hospitalized. She will be placed on DVT prophylaxis. She has dehydration at this time and is on IV fluids and withholding of metformin. I will also follow her liver panel which is abnormal. I have placed her on a renal dose amount of allopurinol for her significant uric acid elevation. She is a very sick patient and her prognosis is guarded at this time. Current Visit: Yes Oncology Subjective PN Interval history: The patient is up in chair this morning breathing comfortable on room air. She was given ice chips yesterday which prohibited sedation and colonoscopy. This is planned for today along with radiotherapy. She is continuing to report back pain across the bilateral iliac areas and I will also attempt MRI scanning today. Flow cytometry on peripheral blood leukocytosis and axillary biopsy are still pending at this time. Discharge could be entertained over the weekend as she has follow-up scheduled with me next week. I am placing her on a fentanyl patch 50 g in addition to other shorter acting narcotics. Exam - Constitutional Vitals: Period Temp Pulse Resp BP Sys/Kelly Pulse Ox Last 24 Hr 96.5 F-99.1 F 83-97 16-20 96-109/60-68 92-100 Results - Labs CBC & BMP: 08/09/16 04:00 08/09/16 04:00
[2016-08-09] MEDS ORDERED: fentaNYL 50 MCG/HR PATCH TRANSDERM SCH (10:00)
[2016-08-09] MEDS ORDERED: LIDOCAINE 2% 5 ML VIAL ONE (10:48)
[2016-08-09] MEDS ORDERED: PROPOFOL 200 MG/20 ML VIAL IV ONE (10:48)
[2016-08-09] MEDS ORDERED: fentaNYL 100 MCG/2 ML VIAL ONE (10:52)
--- NOTE | 2016-08-09 11:13 | Operative Note ---
Date of procedure: 08/09/16 Pre-op diagnosis: abnormal CT of the sigmoid colon Procedure: Flexible sigmoidoscopy 46-year-old female metastatic breast cancer abnormal CT of the sigmoid colon F flexible sigmoidoscopy to further evaluate. Patient was unable tolerate a full prep. Enemas were reportedly given in preparation for this procedure. Informed percent was obtained patient She was sedated with Mac anesthesia per anesthesia protocol. Digital exam was normal patient placed in left Q's position the Olympus flexible video upper endoscope was utilized scope was advanced under direct vision continue the middle portion of the transverse colon. We encounter no obstructing masses or large polyps. Her prep was significantly limited with secretions and some semisolid stool markedly limited visibility. No large polyps or mass lesions were seen throughout the distal transverse, descending, sigmoid and rectum. The procedure terminated patient our procedure well Postop diagnosis: #1 no corresponding abnormalities to CT findings seen on flexible sigmoidoscopy with exam markedly limited by the quality of the prep. If concern remains regarding any underlying pathology in the colon consideration of NG tube placement for prep might be considered if Dr. Ellis feels these findings wouldn 't alter her treatment course. Anesthesia: MAC Surgeon / Physician: Luciano Watts Estimated blood loss: none Specimens: none sent Condition: stable Disposition: post procedure unit Results - Labs CBC & BMP: 08/09/16 04:00 08/09/16 04:00 Discharge Plan - Discharge Medications No Action Metoprolol Tartrate 50 mg PO BID Albuterol Inhaler [Proventil Inhaler] 2 puff INH Q4H PRN PRN Reason: Shortness Of Breath/Wheezing metFORMIN [Glucophage] 1,000 mg PO BID W/MEALS Ascorbic Acid Tab [Vitamin C Tab] 500 mg PO DAILY Citalopram [CeleXA] 20 mg PO DAILY Cyclobenzaprine [Flexeril] 5 mg PO BEDTIME PRN PRN Reason: Pain Cetirizine Tab [ZyrTEC Tab] 10 mg PO DAILY PRN PRN Reason: Allergy Symptoms Ferrous Sulfate 325 mg PO BID Oxycodone HCl/Acetaminophen [Percocet 10-325 mg Tablet] 1 each PO Q6HR PRN # 30 PRN Reason: Pain - Follow Up or Referral - Forms/Instructions
--- NOTE | 2016-08-09 11:16 | Anesthesia ---
Anesthesia Post OP - Post Ansesthetic Evaluation Patient seen in post op: Yes Resp: within normal limits CV: within normal limits Mental: within normal limits Temp: within normal limits Tiic-Be-Mwzgrgwac: within normal limits Nausea and Vomiting: within normal limits Pain: within normal limits
[2016-08-09] MEDS: SODIUM CHLORIDE 0.45% 1,000 ML IV SCH ×2 (12:44→13:03)
[2016-08-09] MEDS ORDERED: ALPRAZolam 0.5 MG TABLET PO STA (14:07)
--- NOTE | 2016-08-09 16:25 | Magnetic Resonance Report ---
Exam: MR lumbar spine wo/w con Date: 08/09/2016 9:52 AM Comparison: None Indication: Breast cancer with back pain Technique:[Multiple acquisitions were obtained including sagittal T2, STIR, and T1 scans before and after the injection of 19 cc of Dotarem and axial T2 and T1 with and without contrast. Scans were obtained on an a 1.5 Aura magnet. Findings: Motion artifact. The alignment of the lumbar spine is unremarkable. The marrow appears hypointense on all sequences. 15 x 13 x 13 mm abnormality posteriorly and superiorly at L2.This finding is hyperintense on T2 and STIR with enhancement on the postcontrast scans. Possible additional enhancement at S4. The disc spaces are as follows: L1-L2: No disc protrusion, stenosis, or foraminal stenosis. L2-L3: No disc protrusion, spinal stenosis, or foraminal stenosis. L3-L4: No disc protrusion, spinal stenosis, or foraminal stenosis. L4-L5: Diffuse osteophyte/disc complex which compresses the thecal sac. No spinal stenosis with minimal bilateral foraminal stenosis. Degenerative changes in the facet joints. L5-S1: Osteophyte/disc complex which contacts the S1 nerve roots. No spinal stenosis or foraminal stenosis. Degenerative changes in the facet joints. Impression: 15 x 13 x 13 mm abnormality noted at L2 which is probably related related to metastatic disease rather than atypical hemangioma. The scans are degraded by motion artifact which limits the exam. It is difficult to exclude additional enhancement at the level of S4. Hypointense marrow which can be seen with hyperplastic marrow, diffuse neoplastic process, metabolic bone disease, blood dyscrasias, myelofibrosis, etc. Bone scan may be helpful for further evaluation. Multilevel DDD as above noted. PROCEDURE INTERPRETED AT [facility] DEPARTMENT OF RADIOLOGY Final Report Signed by: Dr. Zulema Colón
[2016-08-09 17:27] VITALS: BP 124/77
[2016-08-09] MEDS: ALLOPURINOL 100 MG TABLET PO SCH (17:50)
[2016-08-09] MEDS: FERROUS SULFATE 325 MG TABLET PO SCH (17:50)
[2016-08-09] MEDS: METOPROLOL TARTRATE 50 MG TABLET PO SCH (17:50)
[2016-08-09] MEDS: ASCORBIC ACID 500 MG TABLET PO SCH (17:50)
[2016-08-09] MEDS: FLUCONAZOLE 200 MG TABLET PO SCH (17:50)
--- NOTE | 2016-08-12 08:32 | Discharge Summary ---
Hospital Course - Hospital Course Hospital Course: Patient with metastatic carcinoma admitted with back pain. The patient had abnormal CT of the colon from outside hospital. She had a difficult time in taking colonoscopy prep. She had an EGD by Dr. Watts. Approximately 2 days later she underwent colonoscopy that still had poor prep though no obvious finding was noted. She continues to report back pain and an MRI of the lumbar spine was performed on the day of discharge. This showed a 2 cm lytic lesion and this will be forwarded to radiotherapy. She is due for clinic follow-up on August 14. She also underwent a nondiagnostic right axillary biopsy while hospitalized. Fentanyl patch was instituted for her pain in addition to short acting oral narcotics. She remained on radiotherapy to the left femur for a large area of metastasis Diagnosis - Discharge Diagnosis (1) Metastatic carcinoma Status: Acute Discharge Plan - Discharge Data Disposition: Disch To Home/Self Care - Discharge Medications No Action Metoprolol Tartrate 50 mg PO BID Albuterol Inhaler [Proventil Inhaler] 2 puff INH Q4H PRN PRN Reason: Shortness Of Breath/Wheezing fentaNYL [Fentanyl 50 mcg/hr Patch] 1 patch TRANSDERM Q3DAY Ascorbic Acid Tab [Vitamin C Tab] 500 mg PO DAILY Citalopram [CeleXA] 20 mg PO DAILY Cyclobenzaprine [Flexeril] 5 mg PO BEDTIME PRN PRN Reason: Pain Cetirizine Tab [ZyrTEC Tab] 10 mg PO DAILY PRN PRN Reason: Allergy Symptoms Ferrous Sulfate 325 mg PO BID Oxycodone HCl/Acetaminophen [Percocet 10-325 mg Tablet] 1 each PO Q6HR PRN # 30 PRN Reason: Pain Fluconazole Tab [Diflucan Tab] 200 mg PO DAILY - Follow Up or Referral - Forms/Instructions Discharge Results Procedures and tests throughout hospitalization: Pending Orders 08/07/16 08:04 Flow Cytometry Blood Routine DS: Provider Date of admission: 08/05/16 19:07 Primary care physician: Homero Malik Attending physician on admission: Homero Woodruff MD Consults: 08/05/16 20:02 Consult to Physician [CONS] Routine Comment: Metastatic Carcinoma abnormal CT Consulting Provider: Luciano Watts Consulting Provider Notified: Yes When should Consulting Provider be notified: Now Consult to Specialist Group: Gastroenterology When should Consulting Provider be notified: In am Person Notified: AYAZ Date Notified: 08/06/16 Time Notified: 11:40 08/05/16 21:37 Consult to Dietitian [CONS] Routine Reason for Dietitian: Dietary Consult Discharging clinician: Homero Woodruff MD
--- NOTE | 2016-08-13 11:33 | Physician Query Form ---
CLICK EDIT DOCUMENT TO SELECT QUERY ANSWER --> OK --> SIGN Jessy Ram RN Clinical Cad Specialist W) [phone] (f) [phone] [email or web address] PROVIDERS: Make your selection(s) from the choices in EACH section by typing an "x" and enter comments in the comment section. Please use your independent medical judgment in providing your response. This request does not imply that any particular answer is desired or expected. CLINICAL INDICATORS: (Providers should not edit this section) Based on documentation of "I reviewed past CT scans and did not see any obvious bony metastatic disease from last month". Discharge summary states "She continues to report back pain and an MRI of the lumbar spine was performed. This showed a 2 cm lytic lesion and this will be forwarded to radiotherapy". Please clarify the diagnosis of bone metastasis. Please clarify the following: (x ) The above diagnosis was monitored, evaluated, and/or treated and is a confirmed diagnosis ( ) The above diagnosis was ruled out ( ) Other, please specify: ( ) Clinically unable to determine COMMENTS: Use of terms such as suspected, likely, or probable (associated with a specific diagnosis that is being evaluated, monitored, or treated as if it exists) are acceptable and can be restated in the discharge summary if not ruled out. MTDD
== END 2016-08-09 19:54 | disposition home or self-care (01) | DRG 516 ==
LOC: N.4E 19:07
PROVIDERS: ADMIT Specialist; ATTEND Specialist